=== PATIENT | female | born 1980 | race Two or more races ===

== ENCOUNTER → 2019-01-04 | Outpatient (CLI) | payer OTHER ==
--- NOTE | 2019-01-04 12:38 | RAD ---
MR of the left knee HISTORY: Posterior left knee pain during flexion for 8 months. TECHNIQUE: Routine multiplanar sequences are obtained. FINDINGS: No evidence of medial meniscal tear. No evidence of lateral meniscal tear. The anterior and posterior cruciate ligaments are intact. Medial collateral ligament intact. Iliotibial band unremarkable. Fibular collateral ligament, biceps femoris tendon and popliteus tendon are intact. Extensor mechanism intact. Trace joint fluid. Moderate chondromalacia at the medial and lateral joint compartments, moderate to severe chondromalacia at the patellofemoral joint. No acute fracture or aggressive bone destruction. No significant Acosta's cyst. IMPRESSION: 1. Primary osteoarthritis. 2. No evidence of meniscal tear or other internal derangement. Electronically signed by: Hood Dorado MD (01/04/2019 12:36 PM) [id number]
== END | disposition home or self-care (01) ==
LOC: MRI 10:25
PROVIDERS: ATTEND Physician Assistant Medical
DX: M17.12 Unilateral primary osteoarthritis, left knee (principal); M94.262 Chondromalacia, left knee; R79.82 Elevated C-reactive protein (CRP)
CPT/HCPCS: 73721